=== PATIENT | female | born 1965 | race Caucasian/White ===

== ENCOUNTER → 2023-02-23 00:40 | Outpatient (CLI) | payer BC, SELFPAY ==
--- NOTE | 2023-02-23 08:15 | DI.RAD_ITS ---
Exam(s) XR FOOT LT COMPLETE XR FOOT RT COMPLETE EXAM: XR FOOT LT COMPLETE CLINICAL HISTORY: Left foot pain,m79.672. TECHNIQUE: 2D digital imaging was performed. Three views. COMPARISON: CR XR FOOT RT COMPLETE from 02/23/2023 FINDINGS: BONES: No acute fracture is present. No bony destructive lesion is seen. Bilateral heel spurs. JOINTS: No dislocation present. Mild intertarsal and 1st tarsometatarsal joint degenerative changes b ilaterally. SOFT TISSUE: Normal. IMPRESSION: Heel spurs and mild degenerative changes. DATA REPOSITORY: RADIATION DOSE DELIVERED:
== END ==
PROVIDERS: PCP Internal Medicine; Visit Provider Podiatrist
DX: M79.672 Pain in left foot (principal); M79.671 Pain in right foot; M77.31 Calcaneal spur, right foot; M77.32 Calcaneal spur, left foot
CPT/HCPCS: 73630